=== PATIENT | male | born 1960 | race Two or more races ===

== ENCOUNTER 2018-04-03 11:58 | Outpatient (CLI) | payer OTHER ==
[~2018-04-03 11:58] MED LIST: ACET325T53 MC
[2018-04-03 11:59] VITALS: BP 131/83
== END 2018-04-03 23:59 | disposition home or self-care (01) ==
LOC: MSC 11:58
PROVIDERS: ATTEND Internal Medicine
DX: Z09 Encounter for follow-up examination after completed treatment for conditions other than malignant neoplasm (principal); Z90.49 Acquired absence of other specified parts of digestive tract; Z97.8 Presence of other specified devices; E66.01 Morbid (severe) obesity due to excess calories; D64.9 Anemia, unspecified; E43 Unspecified severe protein-calorie malnutrition; E88.09 Other disorders of plasma-protein metabolism, not elsewhere classified